=== PATIENT | male | born 1985 | race Caucasian/White ===

== ENCOUNTER 2020-05-27 09:32 | Inpatient (IN) | payer BC ==
[~2020-05-27 09:32] MED LIST: Dexamethasone 4 MG/ML SDV ONE; Glycopyrrolate 0.2 MG/ML 5 ML MDV ONE; Neostigmine Methylsulfate 1 MG/ML 5 ML Syringe ONE; Ondansetron 4 MG/2 ML SDV ONE; Propofol 200 MG/20 ML SDV ONE; Rocuronium 50 MG/5 ML Vial ONE; Succinylcholine 200 MG/10 ML MDV ONE; cefOXitin 2 GM Vial ONE; fentaNYL 250 MCG/5 ML SDV ONE
[2020-05-27] MEDS ORDERED: Acetaminophen 500 MG Tab PO ONE (10:15)
[2020-05-27] MEDS ORDERED: Celecoxib 200 MG Cap PO ONE (10:15)
[2020-05-27] MEDS ORDERED: Scopolamine 1.5 MG Transdermal Patch TOP SCH (10:15)
[2020-05-27] MEDS ORDERED: Dextrose 5%-Lactated Ringers 1,000 ML IV SCH (10:30)
[2020-05-27] MEDS ORDERED: Magnesium Sulfate 9 GM in Sodium Chloride 0.9% 250 ML IV ONE (11:15)
[2020-05-27] MEDS ORDERED: Ketamine 500 MG/5 ML MDV IV SCH (11:15)
[2020-05-27] MEDS ORDERED: Ketamine 50 MG in Sodium Chloride 0.9% 49.5 ML IV SCH (11:15)
[2020-05-27] MEDS ORDERED: cefOXitin 2 GM in Sodium Chloride 0.9% 50 ML IV ONE (12:30)
[2020-05-27] MEDS ORDERED: Lactated Ringers 1,000 ML ONE (14:12)
[2020-05-27] MEDS ORDERED: fentaNYL 250 MCG/5 ML SDV ONE (14:13)
[2020-05-27] MEDS ORDERED: Rocuronium 50 MG/5 ML Vial ONE (14:31)
[2020-05-27] MEDS ORDERED: Labetalol 20 MG/4 ML Syringe ONE (14:41)
[2020-05-27] MEDS ORDERED: fentaNYL 100 MCG/2 ML SDV ONE (16:39)
[2020-05-27] MEDS ORDERED: hydrOXYzine HCL 100 MG/2 ML SDV IM ONE (16:50)
[2020-05-27] MEDS ORDERED: Glucagon,Human Recombinant 1 MG Vial IM PRN (17:00)
[2020-05-27] MEDS ORDERED: HYDROmorphone 0.5 MG/0.5 ML Syringe IVPUSH PRN (17:00)
[2020-05-27] MEDS ORDERED: 50% Dextrose in Water 50 ML Syringe IVPUSH PRN (17:00)
[2020-05-27] MEDS ORDERED: Calcium Gluconate 10% 1 GM/10 ML SDV IVPUSH PRN (17:00)
[2020-05-27] MEDS ORDERED: Acetaminophen 500 MG Tab PO PRN (17:00)
[2020-05-27] MEDS ORDERED: diphenhydrAMINE 50 MG/ML SDV IVPUSH PRN (17:00)
[2020-05-27] MEDS ORDERED: Insulin Lispro 100 Unit/ML 3 ML KwikPen SUBCUT PRN (17:00)
[2020-05-27] MEDS ORDERED: hydrOXYzine HCL 100 MG/2 ML SDV IM PRN (17:00)
[2020-05-27] MEDS ORDERED: Labetalol 20 MG/4 ML Syringe IVPUSH PRN (17:00)
[2020-05-27] MEDS ORDERED: Lactated Ringers 1,000 ML IV SCH (17:15)
[2020-05-27] MEDS: Dextrose 5%-Lactated Ringers 1,000 ML IV SCH (17:42)
[2020-05-27] MEDS: Pantoprazole 40 MG Vial IVPUSH SCH (17:43)
[2020-05-27] MEDS ORDERED: MVI, Adult with Vitamin K 10 ML, Thiamine 200 MG, Zinc/Copper/Manganese/Selenium 1 ML i... IV SCH ×4 (18:00)
[2020-05-27] MEDS: Ondansetron 4 MG/2 ML SDV IVPUSH PRN (18:01)
[2020-05-27] MEDS: HYDROmorphone 1 MG/ML Syringe IV PRN ×2 (19:42→21:37)
[2020-05-27] MEDS: cefOXitin 2 GM in Sodium Chloride 0.9% 50 ML IV SCH (20:22)
[2020-05-27] MEDS: Metoclopramide 10 MG/2 ML SDV IVPUSH PRN (21:30)
[2020-05-27] MEDS: Acetaminophen 500 MG Tab PO SCH (21:36)
[2020-05-28] MEDS: Ondansetron 4 MG/2 ML SDV IVPUSH PRN ×3 (00:23→09:07)
[2020-05-28] MEDS: HYDROmorphone 1 MG/ML Syringe IV PRN ×2 (00:23→03:11)
[2020-05-28] MEDS: cefOXitin 2 GM in Sodium Chloride 0.9% 50 ML IV SCH ×3 (02:09→13:38)
[2020-05-28] MEDS ORDERED: Iopamidol 612 MG/ML 50 ML SDV PO STA (02:17)
[2020-05-28] MEDS: Dextrose 5%-Lactated Ringers 1,000 ML IV SCH ×2 (03:26→09:14)
[2020-05-28] MEDS: Metoclopramide 10 MG/2 ML SDV IVPUSH PRN ×3 (03:27→17:17)
[2020-05-28] MEDS: Acetaminophen 500 MG Tab PO SCH ×3 (05:43→21:55)
--- NOTE | 2020-05-28 07:05 | CRLCR ---
Indication: Duodenal switch. Technique: Modified upper GI study performed with 50 cc Isovue 300 oral contrast. 4 images sent including immediate, 15 minutes, 30 minutes, and 2 hour 45 minutes delay. Comparison: None. Findings: A duodenal switch procedure has been performed. Surgical sutures and surgical drain in the left upper quadrant. Contrast is seen within the distal esophagus, gastric remnant, and multiple loops of normal caliber proximal small bowel in the right abdomen. No definite extraluminal contrast is identified to suggest a leak, however this exam was performed off site without the benefit of real-time evaluation. Impression: No definite evidence of a leak. Dictated by Sada Spears MD @ May 28 2020 6:56AM Signed by Dr. Sada Spears @ May 28 2020 7:04AM
[2020-05-28] MEDS ORDERED: hydrOXYzine HCl 25 MG Tab PO PRN (07:15)
[2020-05-28] MEDS ORDERED: Metoprolol Succinate 50 MG Tab.ER PO SCH (09:00)
[2020-05-28] MEDS: Enoxaparin 80 MG/0.8 ML Syringe SUBCUT SCH ×2 (09:06→19:07)
[2020-05-28] MEDS: SCOPOLAMINE PATCH CHECK TOP SCH (09:16)
[2020-05-28] MEDS: oxyCODONE 5 MG Tab PO PRN ×2 (09:16→17:17)
--- NOTE | 2020-05-28 09:20 | PN ---
DATE OF SERVICE: 05/28/2020 SUBJECTIVE: Claudio is postoperative day #1. Vital signs have been stable. Oral intake 480 on a step 1 gastric bypass diet. Urine output 1675. ANNETTE drain put out 225. Blood sugars have been 131 and 132. Upper GI was normal this morning. LABORATORY DATA: Hemoglobin 15.1, potassium 5.4, glucose 136 as stated, creatinine 2.5, GFR is 47.04. BNP is 899. Magnesium is 3.4. OBJECTIVE: GENERAL: Claudio is a pleasant 35-year-old male, alert and orientated. VITAL SIGNS: TPR at 0400, 96; 87; 23; blood pressure 117/69. HEENT: Negative. NECK: Supple. HEART: Regular rate and rhythm. LUNGS: Clear. ABDOMEN: Dressings dry and intact. Abdominal binder is on. ANNETTE drain as above. EXTREMITIES: Without peripheral edema. ASSESSMENT: 1. Duodenal switch, liver biopsy, and repair of hiatal hernia for morbid obesity, hepatomegaly, and paraesophageal hernia. 2. Date of surgery: 05/27/2020. 3. Surgeon: Wilber Dewitt MD. PLAN: 1. May shower. 2. Step 2 gastric bypass diet. 3. Atarax 25 mg q.4 hours p.r.n. pain. 4. Lactated Ringer's at 100 mL per hour. 5. Discontinue D5 LR. 6. Zofran ODT 4 mg every 4 hours p.r.n. nausea. 7. Discontinue cardiac monitoring. 8. Discontinue pulse oximetry. 9. Communication order: 3 med cups per hour, record at bedside. 10.We will evaluate p.r.n. or in a.m. Sada Granda PA-C /[id number]
[2020-05-28] MEDS: Colchicine 0.6 MG Tab PO SCH (11:38)
[2020-05-28] MEDS: Furosemide 20 MG Tab PO SCH (11:38)
[2020-05-28] MEDS: Lisinopril 20 MG Tab PO SCH ×2 (11:38→21:10)
[2020-05-28] MEDS: Metoprolol Succinate 50 MG Tab.ER PO SCH (11:39)
[2020-05-28] MEDS: Celecoxib 200 MG Cap PO SCH ×2 (11:39→21:10)
[2020-05-28] MEDS ORDERED: Warfarin 5 MG Tab PO ONE (13:00)
[2020-05-28] MEDS: Cyclobenzaprine 10 MG Tab PO PRN (14:58)
[2020-05-28] MEDS: LORazepam 2 MG/ML SDV IVPUSH PRN ×3 (15:02→21:46)
[2020-05-28] MEDS: MVI, Adult with Vitamin K 10 ML, Thiamine 200 MG, Zinc/Copper/Manganese/Selenium 1 ML i... IV SCH ×4 (16:03)
[2020-05-28] MEDS: Pantoprazole 40 MG Vial IVPUSH SCH (17:20)
[2020-05-29] MEDS: Cyclobenzaprine 10 MG Tab PO PRN ×2 (03:00→10:59)
[2020-05-29] MEDS: Dextrose 5%-Lactated Ringers 1,000 ML IV SCH ×2 (03:01→13:18)
[2020-05-29] MEDS: oxyCODONE 5 MG Tab PO PRN (05:27)
[2020-05-29] MEDS: Acetaminophen 500 MG Tab PO SCH ×3 (05:28→22:37)
[2020-05-29] MEDS ORDERED: Warfarin 5 MG Tab PO ONE (07:36)
[2020-05-29] MEDS: Celecoxib 200 MG Cap PO SCH ×2 (08:22→20:42)
[2020-05-29] MEDS: Lisinopril 20 MG Tab PO SCH ×2 (08:26→20:42)
[2020-05-29] MEDS: Colchicine 0.6 MG Tab PO SCH (08:27)
[2020-05-29] MEDS: Metoprolol Succinate 50 MG Tab.ER PO SCH (08:27)
[2020-05-29] MEDS: Enoxaparin 80 MG/0.8 ML Syringe SUBCUT SCH ×2 (08:30→19:37)
[2020-05-29] MEDS ORDERED: Cyanocobalamin (Vitamin B12) 1,000 MCG/ML SDV IM ONE (09:00)
--- OUTSIDE RECORDS SUMMARY | 2020-05-29 09:18 | XMSREPORT ---
:1985 Author Name Usman Fields Address Unavailable Unavailable , Care Team Providers Name Role Phone Usman Fields Unavailable Unavailable Maty HACKETT Unavailable Unavailable Aric Dhillon Unavailable Unavailable Unavailable Unavailable Unavailable Reason for Referral Pre Op Physical and Continuity of Care document Assessments No Information Problems High cholesterol (272.0) (E78.00) Acute meniscal tear of knee (836.2) (S83.209A) Acute meniscal tear of left knee, initial encounter (836.2) (S83.207A) Hernia, abdominal (553.9) (K46.9) Knee injury (959.7) (S89.90XA) Contact dermatitis (692.9) (L25.9) Shortness of breath at rest (786.05) (R06.02) Acute KS, lateral wall (410.50) (I21.29) Preop general physical exam (V72.83) (Z01.818) Obesity, morbid (more than 100 lbs over ideal weight or BMI > 40) (278.01) (E66.01) High blood pressure (401.9) (I10) Kidney disease (593.9) (N28.9) Allergies and Adverse Reactions No Known Drug Allergies (Allergy) Medications Colchicine 0.6 MG Oral Tablet Start: Quantity: 60 Refills: 0 Lisinopril 30 MG Oral Tablet Start: Quantity: 30 Refills: 0 Metoprolol Succinate ER 50 MG Oral Table t Extended Release 24 Hour; TAKE 1 TABLET BY MOUTH ONCE DAILY LEW Rutledge Start: 24-Dec-2019 Quantity: 90 Refills: 3 Atorvastatin Calcium 20 MG Oral Tablet; TAKE 1 TABLET AT BEDTIME ON TUESDAY, TUESDAY, AND TUESDAY. LEW Rutledge Start: 28-Dec-2019 Quantity: 90 Refills: 3 Coumadin 5 MG TABS Refills: 0 Procedures Electrocardiogram (EKG/ECG) Date: 07-May-2020 CBC WITH AUTO DIFF Date: 07-May-2020 History of Tonsillectomy Status: Complet ed Immunizations Immunizations not documented Family History Family history of colon cancer (V16.0) (Z80.0) Status: Activ e Family history of hypertension (V17.49) (Z82.49) Status: Act terry Family history of high cholesterol (V18.19) (Z83.42) Status: Active Social History - Never smoked tobacco Recorded: Plan of Treatment Planned Goals not documented Results COVID19 Tracking Flowsheet (Pending) 07-May-2020 11:10 High Risk Conditions None Range: - Underlying Health Conditions Range: - Obesity (BMI >40) Smoking Status Non-Smoker Range: - Contact with someone Range: - diagnosed with COVID-19? No Contact with someone that has Range: - Cold/Flu symptoms? No Is patient displaying any Range: - known symptoms of COVID-19? No Fever? No Range: - Chills or Shaking with Chills Range: - No Cough No Range: - Headache / Severe Headache No Range: - Loose Stools or Diarrhea? No Range: - Muscle Pain No Range: - Loss of Smell or Taste? No Range: - Shortness of Breath (SOB) No Range: - Sore Throat No Range: - Vomiting No Range: - COMPREHENSIVE METABOLIC PN,CMP [facility] nts: @ [place] DATE was ([place]) JESU [place] changed from 0 to 05/08/20 @ by ALESSIA. [place] was [id number]. Reason for Exam: [id number], 08-May-2020 8:30 SODIUM,NA 140 mmol/L (Normal) Range: 13 5-145 POTASSIUM,K 5.0 mmol/L Range: 3.5-5.3 (Normal) CHLORIDE,CL 105 mmol/L Range: 100-110 (Normal) CARBON DIOXIDE,CO2 25 mmol/L Range: 21- 32 (Normal) GLUCOSE RANDOM 92 mg/dL Range: 80-116 (Normal) BLOOD UREA NITROGEN,BUN 39 Range: 7-18 mg/dL (above high threshold) CREATININE 2.0 mg/dL Range: 0.70-1.30 (Critical abnormal) Comments: CREAT RESU LTS CALLED TO AND READ BACK BY NEENA AT 05/08/20 0854 BY Gabbie Espinoza. ESTIMATED GFR 38 (below low Range: >60 threshold) BUN/CREATININE RATIO 19.5 Range: 9-20 (Normal) CALCIUM 9.2 mg/dL (Normal) Range: 8.6-1 0.2 PROTEIN TOTAL,TP 7.3 g/dL Range: 6.0-8. 0 (Normal) ALBUMIN 3.6 g/dL (Normal) Range: 3.5-5. 2 GLOBULIN 3.7 g/dL (Normal) A/G RATIO 1.0 (Normal) BILIRUBIN TOTAL 0.3 mg/dL Range: 0.1-1. 3 (Normal) ALKALINE PHOSPHATASE 49 Range: 56-112 {IU/L} (below low threshold) ALANINE AMINOTRANSFERASE,ALT Range: 12- 36 55 U/L (above high threshold) Comments: Delta: 43 on 03/07/20-1540 ASPARTATE Range: 5-25 AMNIOTRANSFERASE,AST 24 {IU/L} (Normal) EST CRCL DRUG DOSING (CG) Comments: Cesar ot calculate Test Not Performed mL/min creatinine mel interiano (Normal) because height is missing. Vital Signs 07-May-2020 8:45 Systolic 147 mm[Hg] Diastolic 86 mm[Hg] Height 75 in Weight 430 lb BMI Calculated 53.75 kg/m2 BSA Calculated 3.04 m2 Temperature 97.9 f Heart Rate 84 /min Respiration 17 /min O2 Saturation 98 %
--- OUTSIDE RECORDS SUMMARY | 2020-05-29 09:18 | XMSREPORT ---
:1985 Author Organization Address [address] [place] [address] Phone Reason For Referral No Reason for Referral was given. History Of Present Illness No HPI available. Assessments No Assessments available Plan of Care Name Dates Details Planned Observations Bariatric Surgeon Referral Request
--- NOTE | 2020-05-29 09:19 | PN ---
DATE OF SERVICE: 05/29/2020 SUBJECTIVE: Claudio did have 300 in, 1 emesis of 150 mL. He feels like things are going down a little bit better but slow. PT 10.7. INR 0.98. Labs were reviewed. Vital signs stable. REVIEW OF SYSTEMS: Remainder of review of systems negative for any pertinent positives and negatives. OBJECTIVE: GENERAL: Claudio Terrazas is a pleasant 35-year-old male, alert and orientated. VITAL SIGNS: TPR is 97, 71, 20, blood pressure 140/79. HEENT: Negative. NECK: Supple. HEART: Regular rate and rhythm. LUNGS: Clear. ABDOMEN: Quite bruised. Incisions look good. Sutures intact. ANNETTE drain intact. Abdominal binder has been on. EXTREMITIES: Without peripheral edema. ASSESSMENT: 1. Duodenal switch, liver biopsy, repair of hiatal hernia for morbid obesity, hepatomegaly, paraesophageal hernia. Date of procedure, 05/27/2020. Surgeon: Wilber Dewitt MD. 2. Moderate dysphagia, improving. PLAN: Check CBC, CMP, mag, phos, and BNP in a.m. INR and PT are already ordered. Coumadin 7.5 mg p.o. 1 time today. Continue with 1 med cup every 20 minutes. Encouragement given. We will evaluate p.r.n. or in a.m. Sada Granda PA-C /[id number]
[2020-05-29] MEDS: SCOPOLAMINE PATCH CHECK TOP SCH (09:43)
[2020-05-29] MEDS: Metoclopramide 10 MG/2 ML SDV IVPUSH PRN (12:53)
[2020-05-29] MEDS ORDERED: Warfarin 5 MG, Warfarin 2.5 MG PO ONE ×2 (13:00)
[2020-05-29] MEDS: MVI, Adult with Vitamin K 10 ML, Thiamine 200 MG, Zinc/Copper/Manganese/Selenium 1 ML i... IV SCH ×4 (16:45)
[2020-05-29] MEDS: Pantoprazole 40 MG Delayed-Release Granules 1 Packet PO SCH (16:46)
[2020-05-30] MEDS: Ondansetron 4 MG/2 ML SDV IVPUSH PRN ×2 (02:08→19:46)
[2020-05-30] MEDS: Dextrose 5%-Lactated Ringers 1,000 ML IV SCH (02:11)
[2020-05-30] MEDS: Acetaminophen 500 MG Tab PO SCH ×3 (05:22→21:52)
[2020-05-30] MEDS: Metoclopramide 10 MG/2 ML SDV IVPUSH PRN (08:12)
[2020-05-30] MEDS ORDERED: Lidocaine 1% with EPINEPHrine 1:100,000 50 ML MDV ONE (08:24)
[2020-05-30] MEDS ORDERED: Bupivacaine 0.5% 50 ML MDV ONE (08:24)
[2020-05-30] MEDS: Furosemide 20 MG Tab PO SCH (09:50)
[2020-05-30] MEDS: Enoxaparin 80 MG/0.8 ML Syringe SUBCUT SCH (09:50)
[2020-05-30] MEDS: Colchicine 0.6 MG Tab PO SCH (09:50)
[2020-05-30] MEDS: Celecoxib 200 MG Cap PO SCH ×2 (09:50→21:48)
--- NOTE | 2020-05-30 10:09 | PN ---
DATE OF SERVICE: 05/30/2020 SUBJECTIVE: Claudio continues to spit up and vomit everything he eats. He has been walking. ANNETTE drain put out 305 mL of light red drainage. Oral intake 685 and emesis 150. Urine output was not recorded. He has been afebrile. Remainder of review of systems negative for any pertinent positives and negatives. OBJECTIVE: GENERAL: Claudio Terrazas is a pleasant 35-year-old male. He is alert, orientated, sitting up in the chair. VITAL SIGNS: TPR is 96.4, 86, 18. Blood pressure 130/99. HEENT: Negative. NECK: Supple. HEART: Regular rate and rhythm. LUNGS: Clear. ABDOMEN: Trocar sites healing well. Extensive bruising previously from Lovenox injection prior to surgery with in addition to his surgery sites. ANNETTE drain intact. LABORATORY DATA: Hemoglobin 14. His PT is 11.1, INR is 1.02. BNP is 412. ASSESSMENT: 1. Dysphagia. 2. Duodenal switch. 3. Liver biopsy. 4. Repair of hiatal hernia for morbid obesity. 5. Hepatomegaly. 6. Periesophageal hernia. Date of procedure: 05/27/2020. Surgeon: Wilber Dewitt MD. PLAN: 1. Schedule and have consent signed for upper endoscopy with possible dilation and with IV/local sedation and laparoscopic possible laparotomy for revision of the duodenal ileostomy anastomosis-general anesthesia-case to follow 05/30/2020. N.p.o. Surgeon: Wilber Dewitt MD. Robinul 0.4 mg IV on-call to OR. 2. Meropenem 500 mg IV on-call to OR. 3. Check CBC, CMP, mag, phos, and BNP in a.m. 4. Coumadin 7.5 mg orally to be given after surgical procedure, but to check with Wilber Dewitt MD before giving that medication. 5. We will evaluate p.r.n. or in a.m. Sada Granda PA-C /[id number]
[2020-05-30] MEDS ORDERED: Glycopyrrolate 0.2 MG/ML 2 ML SDV IVPUSH ONE (10:30)
[2020-05-30] MEDS ORDERED: Meropenem 500 MG in Sodium Chloride 0.9% 50 ML IV ONE (10:30)
[2020-05-30] MEDS ORDERED: fentaNYL 250 MCG/5 ML SDV ONE ×2 (10:37→11:58)
[2020-05-30] MEDS ORDERED: Ondansetron 4 MG/2 ML SDV ONE (10:38)
[2020-05-30] MEDS ORDERED: Neostigmine Methylsulfate 1 MG/ML 5 ML Syringe ONE (10:38)
[2020-05-30] MEDS ORDERED: Rocuronium 50 MG/5 ML Vial ONE (10:38)
[2020-05-30] MEDS ORDERED: Dexamethasone 4 MG/ML SDV ONE (10:38)
[2020-05-30] MEDS ORDERED: Propofol 200 MG/20 ML SDV ONE ×2 (10:38→11:42)
[2020-05-30] MEDS ORDERED: Glycopyrrolate 0.2 MG/ML 5 ML MDV ONE (10:38)
[2020-05-30] MEDS ORDERED: Succinylcholine 200 MG/10 ML MDV ONE (10:38)
[2020-05-30] MEDS: Lisinopril 20 MG Tab PO SCH ×2 (10:59→21:48)
[2020-05-30] MEDS: Metoprolol Succinate 50 MG Tab.ER PO SCH ×2 (10:59→15:56)
[2020-05-30] MEDS ORDERED: Lactated Ringers 1,000 ML ONE (12:20)
[2020-05-30] MEDS: MVI, Adult with Vitamin K 10 ML, Thiamine 200 MG, Zinc/Copper/Manganese/Selenium 1 ML i... IV SCH ×4 (15:59)
[2020-05-30] MEDS ORDERED: Warfarin 5 MG, Warfarin 2.5 MG PO ONE ×2 (17:00)
[2020-05-30] MEDS ORDERED: Warfarin 5 MG Tab PO ONE (17:00)
[2020-05-30] MEDS: Pantoprazole 40 MG Delayed-Release Granules 1 Packet PO SCH (17:56)
[2020-05-31] MEDS: Dextrose 5%-Lactated Ringers 1,000 ML IV SCH (02:07)
[2020-05-31] MEDS: Acetaminophen 500 MG Tab PO SCH ×3 (05:36→21:26)
[2020-05-31] MEDS ORDERED: methylPREDNISolone Sodium Succinate 40 MG/1 ML SDV IVPUSH SCH (07:00)
[2020-05-31] MEDS ORDERED: methylPREDNISolone Sodium Succinate 125 MG/2 ML SDV IVPUSH SCH (08:00)
[2020-05-31] MEDS: methylPREDNISolone Sodium Succinate 125 MG/2 ML SDV IVPUSH SCH ×3 (09:00→20:00)
[2020-05-31] MEDS: Celecoxib 200 MG Cap PO SCH ×2 (09:01→21:25)
[2020-05-31] MEDS: Enoxaparin 100 MG/1 ML Syringe SUBCUT SCH ×2 (09:01→21:26)
[2020-05-31] MEDS: Colchicine 0.6 MG Tab PO SCH (09:01)
[2020-05-31] MEDS: Lisinopril 20 MG Tab PO SCH ×2 (09:02→21:26)
[2020-05-31] MEDS: Metoprolol Succinate 50 MG Tab.ER PO SCH (09:03)
[2020-05-31] MEDS ORDERED: Warfarin 5 MG Tab PO ONE (11:00)
[2020-05-31] MEDS: Ondansetron 4 MG Tab.DIS PO PRN (11:20)
[2020-05-31] MEDS ORDERED: Sodium Chloride 0.9% 10 ML Syringe IV PRN (14:55)
[2020-05-31] MEDS ORDERED: diphenhydrAMINE 25 MG Cap PO PRN (14:56)
[2020-05-31] MEDS ORDERED: Metoclopramide 10 MG Tab PO PRN (14:57)
[2020-05-31] MEDS: Pantoprazole 40 MG Delayed-Release Granules 1 Packet PO SCH (17:33)
[2020-05-31] MEDS ORDERED: Calcium Carbonate 500 MG Tab.Chew PO ONE (21:25)
[2020-06-01] MEDS: methylPREDNISolone Sodium Succinate 125 MG/2 ML SDV IVPUSH SCH ×2 (02:19→07:32)
[2020-06-01 02:25] VITALS: PULSE 80
[2020-06-01] MEDS: Acetaminophen 500 MG Tab PO SCH (06:46)
[2020-06-01] MEDS: Ondansetron 4 MG Tab.DIS PO PRN (08:51)
[2020-06-01] MEDS: Celecoxib 200 MG Cap PO SCH (09:04)
[2020-06-01] MEDS: Colchicine 0.6 MG Tab PO SCH (09:04)
[2020-06-01] MEDS: Metoprolol Succinate 50 MG Tab.ER PO SCH (09:04)
[2020-06-01] MEDS: Lisinopril 20 MG Tab PO SCH (09:05)
[2020-06-01] MEDS: Enoxaparin 100 MG/1 ML Syringe SUBCUT SCH (09:05)
[2020-06-01 09:06] VITALS: BP 118/70
[2020-06-01] MEDS ORDERED: Magnesium Hydroxide 400 MG/5 ML Susp 30 ML Cup PO PRN (09:20)
[2020-06-01] MEDS ORDERED: Warfarin 5 MG Tab PO ONE (10:00)
--- NOTE | 2020-06-01 11:55 | PN ---
DATE OF SERVICE: 05/31/2020 The patient initially had some nausea last night. Overnight, he is able to keep things down fairly well. We will give him some IV steroids to try to decrease the amount of swelling at the duodenal ileostomy and otherwise continue with the step-2 diet today. We will restart his Lovenox and Coumadin today as well and creatinine is stable at 2.1, recheck that tomorrow. Of note, did receive a large dose of Decadron yesterday, and his blood sugars still remain reasonably good with a blood sugar this morning being 119 with an IV of D5LR continuing. Wilber Dewitt MD /[id number]
--- NOTE | 2020-06-02 11:24 | DISCH ---
FINAL DIAGNOSES: 1. Morbid obesity. 2. Marked hepatomegaly. 3. Paraesophageal diaphragmatic hernia. 4. Mediastinal lipoma. 5. History of acute myocardial infarction. 6. History of hypertension. 7. Hyperlipidemia. 8. History of pulmonary embolism. 9. Chronic kidney disease. 10.Orthopedic problems involving legs and joints. 11.History of gout. 12.Postoperative edema. 13.Partial obstruction of duodenal ileostomy. OPERATIVE PROCEDURES: 1. Done on 05/27, diagnostic laparoscopy with: a. Laparoscopic duodenal switch. b. Jorge Luis-Cut needle liver biopsy. c. Repair of paraesophageal diaphragmatic area. d. Excision of mediastinal lipoma. 2. Done on 05/30, upper gastrointestinal endoscopy with dilation of the duodenal ileostomy. SUMMARY: This is a 35-year-old male presenting with longstanding morbid obesity and quite severe coexisting comorbidities. On the day of admission, the patient underwent a laparoscopic duodenal switch along with concurrent procedures. His upper GI x-ray on the following morning did show emptying through the duodenal ileostomy, but somewhat slowly this became more of a problem over the ensuing days and on 05/30, the patient underwent upper endoscopy and dilation of that. Since that time he has been able to maintain good oral intake with over 2600 mL of liquid taken over the last 24 hours. His creatinine has been stable through the period, in fact, slightly better than on admission at 2.2 over the last 2 days. At this point, the patient will be discharged home on standard liquid diet for 1 month postoperatively. He will be sent home on Lovenox 120 mg b.i.d. while he is being re- coumadinized. We will see him back in [facility] on Tuesday, 06/06 with a CBC, BMP, magnesium phosphate, BNP, and a pro-time at that time. Medications on discharge include the same doses of his usual medications plus Lovenox 120 mg subcu q.12 hours, #11; Protonix 40 mg p.o. daily x30 days; Zofran 4 mg ODT q.4 hours p.r.n. nausea, #30, refill x1, and we will give him Medrol Dosepak starting tomorrow. He has been given some IV steroids while in the hospital. He is to try and minimize problems with recurrent edema at the duodenal ileostomy. /[id number]
--- NOTE | 2020-06-02 11:48 | OR ---
DATE OF PROCEDURE: 05/27/2020 SURGEON: Wilber Dewitt MD PREOPERATIVE DIAGNOSIS: Morbid obesity. POSTOPERATIVE DIAGNOSES: 1. Morbid obesity. 2. Marked hepatomegaly. 3. Paraesophageal diaphragmatic hernia. 4. Mediastinal lipoma. OPERATIVE PROCEDURE: Diagnostic laparoscopy with: 1. Laparoscopic duodenal switch (14191). 2. Jorge Luis-Cut needle liver biopsy (47373). 3. Repair of paraesophageal diaphragmatic hernia (89621). 4. Excision of mediastinal lipoma (59773). ANESTHESIA: General. [employer]SEM[employer]ER [employer]: Sada Granda PA-C INDICATION FOR PROCEDURE: This is a 35-year-old male presenting with longstanding morbid obesity with quite striking comorbidities in terms of cardiovascular and renal problems, having already had a myocardial infarction with significant renal insufficiency at age 35, presently just 440 pounds. Plan is to proceed with a laparoscopic duodenal switch. Potential risks of the procedure including bleeding, infection, injury to underlying viscera, and problems with leaks from GI tract closures as well as possibility of cardiopulmonary, septic, or hemorrhagic complications leading to were discussed, and the patient wishes to proceed. DETAILS OF PROCEDURE: The patient was taken to the operating room, and after general endotracheal anesthesia was induced, he was converted to a and the abdomen prepped and draped. At 20 cm inferior and 5 cm left of the xiphoid process, a transverse incision was made, and the peritoneal cavity entered under direct vision with an Optiview trocar, inflated to 15 mmHg pressure with CO2. Laparoscope was reinserted. Bilateral transverse abdominis plane blocks were then placed, and 6 additional trocars were placed across the upper and mid abdomen. As expected, the patient had marked hepatomegaly with liver being grossly fatty infiltrated. Jorge Luis-Cut needle biopsies were obtained from left lobe of the liver and minimal bleeding from the biopsy sites was controlled with electrocautery. At this point, the small bowel was identified at the ileocecal valve and traced back 300 cm. This came up to the duodenum reasonably well, although the mesentery was very thickened, and we decided at that point to proceed with duodenal ileostomy, but hold on the second anastomosis as that would likely create some undue tension at that anastomosis and could be completed with a secondary procedure if necessary. The liver was then retracted anteriorly. The patient was noted to have a moderate-sized paraesophageal diaphragmatic hernia. The peritoneum overlying this was incised and reflected downward. During the course of dissection, mediastinal lipoma was encountered which was excised to facilitate more adequate crural repair. Anterior crural repair was accomplished with 0 Ethibond sutures, reinforced with PTFE pledgets. Beginning in the mid-greater curvature then, the omentum was then divided away from the stomach up to and through the highest and posterior short gastric vessels. The gastric cardia and fundus were dissected well away from the crura at this point to minimize problems with cul-de-sac of stomach being in that area. The dissection was then continued distally with combination of Harmonic scalpel and aminata until the pyloric sphincter was identified and then 4 cm distal to that near the duodenum. At this point, the sleeve gastrectomy staple line was marked out with electrocautery, and the first 2 firings of the LENY aminata began with black loads of 6 cm proximal to the pylorus. Once these initial firings were obtained and care was taken to avoid overtightening at the incisura angularis, a 40-Tongan chest tube was placed orally and placed along the lesser curvature side of the stomach. The remainder of the sleeve gastrectomy staple line was accomplished with a combination of reinforced black and purple loads. At that point, the stomach was displaced off from the side and subsequently removed prior to placement of the Jm-Donnelly drain. At this point, the duodenum was dissected inferiorly, posteriorly, and superiorly 0.4 cm distal to the pylorus. This was then divided with a LENY purple load with reinforcement. This involved a nice descent of the divided proximal duodenum. The stay sutures between the small bowel again 300 cm proximal to the ileocecal valve on the superior and inferior aspect of the proximal duodenum were then placed with 3-0 Vicryl stitch. Small enterotomies were then placed in the duodenum and adjacent jejunum, and the initial duodenal ileostomy was constructed with 30 mm internal firing of the LENY dominguez load. The common opening was then closed after placement of 3 sutures both on the lower and upper ends as well as the middle portion of the common opening, and this was then closed with a LENY purple load. That area was then reinforced with some 3-0 Vicryl seromuscular stitch and some additional stay sutures were then placed in the small bowel just proximal to the anastomosis to facilitate distal flow of GI contents out of the stomach into the efferent limb. The sleeve gastrectomy was then reinforced with fibrin sealant as was the duodenal ileostomy. The omentum was tacked up against the area of esophagogastric junction with some 3-0 Vicryl stitch. The gastroscope was then placed after removal of the chest tube with inflation of the stomach with the area being irrigated with antibiotic-containing saline solution and no leaks were seen. Good air flow through the duodenal ileostomy was confirmed and confirming its patency, and the procedure was then concluded with removal of the scope. At this point, I removed the stomach. The Jm-Donnelly drain was taken out through the left lateral trocar site and positioned up against the area of the esophagogastric junction and from there into the splenic fossa, and with no further problems noted, trocars were removed. Peritoneal cavity was deflated. Incisions were closed with 4-0 Vicryl skin stitch and drains affixed with 4-0 Vicryl stitch as well. The patient was taken to the recovery room in satisfactory condition. Wilber Dewitt MD /[id number]
--- NOTE | 2020-06-08 08:01 | OR ---
DATE OF PROCEDURE: 05/30/2020 SURGEON: Wilber Dewitt MD PREOPERATIVE DIAGNOSIS: Clinically evident obstructed duodeno-ileostomy. POSTOPERATIVE DIAGNOSIS: Edema and obstruction duodeno-ileostomy. OPERATIVE PROCEDURE: Upper GI endoscopy with dilation of duodeno-ileostomy (65624). INDICATION FOR PROCEDURE: The patient is status post duodenal switch earlier in the week and has had persistent problems with nausea and vomiting. Initial upper GI examination showed emptying of the duodeno-ileostomy was somewhat slowed, this appears to have slowed down quite further, may be related to either edema or other pharyngeal obstruction of the duodeno-ileostomy as well as possible component of gastroparesis related to the underlying type 2 diabetes mellitus. Plan is to proceed with upper GI endoscopy with dilation of the duodeno-ileostomy. Potential risks including bleeding, infection, aspiration of gastric contents as well as possible perforation of the duodeno-ileostomy, and lastly the possibility that the procedure may not be efficacious requiring reoperation for correction were all gone over and the patient wishes to proceed. DETAILS OF PROCEDURE: The patient was taken to the operating room and placed in initially a sitting position, 45 degrees. IV sedation administered, after which a nasogastric tube was placed per Anesthesia to empty the stomach as much as possible. Following this, general endotracheal anesthetic was induced and the patient was placed in a left lateral decubitus position. General anesthetic was used in this case to provide better airway control given the degree of obesity and probable some remaining gastric and esophageal fluid making room for aspiration risk. Following this, the upper GI endoscope was passed orally through the length of the esophagus and into the stomach. Small amount of remaining fluid was removed. The nasogastric tube was left in place at this point which allowed some evacuation of the air so as to avoid over distention of the sleeve gastrectomy portion of the procedure during the endoscopic phase. The esophagogastric junction, sleeve gastrectomy portions of the procedure all appeared to be satisfactory. The patient did have a narrowed duodeno- ileostomy. Using fluoroscopic surveillance, a Bard gastrointestinal catheter was then centered across the anastomosis and manipulated into the afferent limb of the ileum. This was inflated to 36-Thai size. Following this, the gastroscope could be passed through the anastomosis and into the area of the adjacent ileum and the area appeared to be satisfactorily opened up. The scope was then withdrawn and along with the NG tube removed. The patient was taken to the recovery room after the x-ray. There were no evident complications. Wilber Dewitt MD /[id number]
== END 2020-06-01 10:36 | disposition home or self-care (01) | DRG 403 ==
LOC: JP.SDS 09:32 → JP.SDSSCHI 09:43 → EDSTATUS 09:45 → JP.ICU 17:22 → JP.MS 05-28 14:38
PROVIDERS: ADMIT Surgery; ATTEND Surgery
PROC: 0D194ZB Bypass Duodenum to Ileum, Percutaneous Endoscopic Approach (ICD-10-PCS; principal; 2020-05-27)
PROC: 0FB24ZX Excision of Left Lobe Liver, Percutaneous Endoscopic Approach, Diagnostic (ICD-10-PCS; 2020-05-27)
PROC: 0BQT4ZZ Repair Diaphragm, Percutaneous Endoscopic Approach (ICD-10-PCS; 2020-05-27)
PROC: 0JB63ZZ Excision of Chest Subcutaneous Tissue and Fascia, Percutaneous Approach (ICD-10-PCS; 2020-05-27)
PROC: 0D798ZZ Dilation of Duodenum, Via Natural or Artificial Opening Endoscopic (ICD-10-PCS; 2020-05-30)
PROC: 0D7B8ZZ Dilation of Ileum, Via Natural or Artificial Opening Endoscopic (ICD-10-PCS; 2020-05-30)
DX: E66.01 Morbid (severe) obesity due to excess calories (principal); R13.10 Dysphagia, unspecified; R16.0 Hepatomegaly, not elsewhere classified; K44.9 Diaphragmatic hernia without obstruction or gangrene; E78.5 Hyperlipidemia, unspecified; N18.9 Chronic kidney disease, unspecified; I12.9 Hypertensive chronic kidney disease with stage 1 through stage 4 chronic kidney disease, or unspecified chronic kidney disease; M10.9 Gout, unspecified; K56.600 Partial intestinal obstruction, unspecified as to cause; D17.4 Benign lipomatous neoplasm of intrathoracic organs; I25.2 Old myocardial infarction; Z86.711 Personal history of pulmonary embolism; K31.5 Obstruction of duodenum; K94.13 Enterostomy malfunction; Y83.8 Other surgical procedures as the cause of abnormal reaction of the patient, or of later complication, without mention of misadventure at the time of the procedure; Z90.89 Acquired absence of other organs; Z68.43 Body mass index [BMI] 50.0-59.9, adult
CPT/HCPCS: 36415; 74240; 80048; 80053; 82962; 83735; 83880; 84100; 85027; 85610; 86850; 86900; 86901; 88304; 88307; 88313; A9270-GY; C9113; J0171; J0330; J0694; J1100; J1170; J1650; J1790; J2060; J2185; J2405; J2704; J2710; J2765; J2795; J2930; J3010; J3410; J3411; J3420; J3475; J3490; J7050; J7120; J7121; Q9967